=== PATIENT | male | born 1935 | race Caucasian/White ===

== ENCOUNTER 2016-12-23 13:27 | Emergency (ER) | payer OTHER, MEDICARE ==
[~2016-12-23] VITALS: Ht 162.6 cm; Wt 90.7 kg
--- NOTE | 2016-12-23 13:47 | ED MVC/FALL/TRAUMA COMPLAINT ---
History of Present Illness General Chief Complaint: Laceration Procedure Stated Complaint: LAC TO CHIN, S/P FALL Source: patient, old records Exam Limitations: no limitations Vital Signs & Intake/Output Vital Signs & Intake/Output Vital Signs Date Time Temp Pulse Resp B/P B/P Pulse O2 O2 Flow FiO2 Mean Ox Delivery Rate 12/23 1502 75 128/60 12/23 1337 98.4 76 18 129/61 98 Room Air Allergies Coded Allergies: No Known Allergies (12/23/16) Triage Note: 81 YO MALE TO TRIAGE FROM [facility]. PT STATES HE WAS TALKING AND TRIPPED AND FELL. +HEADSTRIKE. PT SENT IN FOR CT SCAN. PT NOTED WITH LAC TO R SIDE OF FACE, STERISTIPS IN PLACE FROM [facility]. Triage Nurses Notes Reviewed? yes Onset: Abrupt Duration: hour(s): (2), better, constant Timing: single episode today Severity: mild Severity Numbers: 1 Injuries/Fall Location: face Method of Injury: fall Loss of Consciousness: no loss of consciousness No Modifying Factors: none Associated Symptoms: denies HPI: 81 year old male with history of gout presents to the ER for evaluation s/p mechanical fall just prior to arrival. He now presents with a laceration to his right jaw. He states he tripped walking on a sidewalk hitting his face on a brick. There is no loss of consciousness the injury occurred approximate 2 hours ago he went to an urgent care and was referred here for further evaluation. He denies any headache there is no loss of consciousness he is not on any blood thinners. No change in his mental status per family. He is declining anything for pain when offered no epistaxis no vision changes no neck back chest or abdominal pain denies any arm or leg injury. The fall was mechanical he tripped over the sidewalk there is no prodromal dizziness lightheadedness prior to his fall. (SHERRI PERSAUD,NIALL) Past History Travel History Traveled to [place] past 21 day No Medical History Any Pertinent Medical History? 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 No (NIALL HERNANDEZ) Review of Systems Review of Systems Constitutional: Reports: see HPI. All Other Systems: Reviewed and Negative Comments Review of systems: See HPI, All other systems negative. Constitutional, no chills no fever, no malaise HEENT: No visual changes no sore throat no congestion Cardiovascular: No chest pain , no palpitation Skin: no rashes, no change in skin Respiratory: No dyspnea no cough no sputum GI: No nausea no vomiting, no diarrhea, Muscle skeletal: No joint pain, no joint swelling, no back pain, no neck pain, Neurologic: No numbness no confusion, no headache Psych: No stress Heme/endocrine: No bruising Immunology: No lymphadenopathy (NIALL HERNANDEZ) Physical Exam Physical Exam General Appearance: well developed/nourished, alert, awake Comments: Well-developed well-nourished person in no acute distress HEENT: There is a 1 cm V-shaped flap laceration noted to the right mandible, no active bleeding no surrounding ecchymosis or swelling nontender no dental trauma no intraoral laceration Normal EENT exam; PERRL, EOMI, no nystagmus. scalp is atraumatic. moist mucous membranes. Neck: Supple, , normal range of motion without pain or tenderness Back: Nontender, Full range of motion Cardiovascular: Regular rate and rhythms no murmurs rubs Respiratory: No respiratory distress. Patient speaking in full complete sentences. Breath sounds clear to auscultation bilaterally: NO W/R/R Extremity: No edema, full range of motion of extremities, normal and equal pulses bilaterally Neuro: Alert oriented x3, motor sensory normal, cranial nerves II through XII grossly intact. There were no obvious focal neurologic abnormalities. Skin: No appreciable rash on exposed skin, skin is warm and dry. Psych: Mood and affect is normal, memory and judgment is normal. Core Measures ACS in differential dx? No Severe Sepsis Present: No Septic Shock Present: No (NIALL HERNANDEZ) Progress Differential Diagnosis: C/T/L spine injury, ext injury, ICH, spinal cord injury Plan of Care: Orders Procedure Date/time Status CT HEAD WO IV CONTRAST 12/23 1338 Active CAT scan was ordered from triage patient is declining anything for pain when offered The wound was thoroughly irrigated with normal saline Betadine peroxide Dermabond was applied. Return precautions were discussed at a long discussion with the patient and his family regarding his CAT scan results need for close follow-up with his primary-care return to ER with any concerns or signs of infection they feel comfortable this plan cleared for discharge (NIALL HERNANDEZ) Diagnostic Imaging: Viewed by Me: CT Scan. Discussed w/RAD: CT Scan. Radiology Impression: PATIENT: COREY PENDLETON PRESENT AGE : 81 PATIENT ACCOUNT NO: [id number] : 34 LOCATION: [facility] ORDERING PHYSICIAN: NIALL PERSAUD SERVICE DATE: 12/23/16 EXAM TYPE: CAT - CT HEAD WO IV CONTRAST EXAMINATION: CT HEAD WITHOUT CONTRAST CLINICAL INFORMATION: 81-year-old man with head injury post fall. COMPARISON: None TECHNIQUE: Contiguous axial imaging was performed from the skull base to vertex without intravenous administration of contrast. DLP: 553 mGy-cm FINDINGS: There is no evidence of acute intracranial hemorrhage or territorial infarction. No abnormal mass effect or midline shift is seen. [place]ult[place] to white matter differentiation is well preserved. No extra-axial fluid collections are identified. The ventricles and sulcal spaces are diffusely prominent due to chronic volume loss. There is no abnormal attenuation within the brain parenchyma. The osseous structures and soft tissues are normal. The mastoid air cells and visualized portions of the paranasal sinuses are well aerated. IMPRESSION: No acute intracranial pathology. DICTATED BY: JACQUELINE MORGAN MD DATE/TIME DICTATED:12/23/161429 RECYCLER: ROSMERY DATE/TIME TRANSCRIBED:12/23/161429 CONFIDENTIAL, DO NOT COPY WITHOUT APPROPRIATE AUTHORIZATION. <Electronically signed in Other Vendor System> SIGNED BY: JACQUELINE MORGAN MD 12/23/16 1436 (NIALL HERNANDEZ) Departure Departure Time of Disposition: 1453 Disposition: HOME OR SELF CARE Condition: Stable Clinical Impression Primary Impression: Minor head injury without loss of consciousness Secondary Impressions: Facial laceration Additional Instructions: Keep wound clean and covered bacitracin daily.the glue will dissolve on its own. Tylenol Motrin as needed for pain follow-up with your primary care physician, return to ER with any concerns or signs of infection. Departure Forms: Customer Survey General Discharge Information (NIALL HERNANDEZ) PA/BUILDING MAINTENANCE REPAIRER Co-Sign Statement Statement: ED Attending supervision documentation- [X] I saw and evaluated the patient. I have also reviewed all the pertinent lab results and diagnostic results. I agree with the findings and the plan of care as documented in the PA's/BUILDING MAINTENANCE REPAIRER's documentation. [X] I have reviewed the ED Record and agree with the PA's/BUILDING MAINTENANCE REPAIRER's documentation. [] Additions or exceptions (if any) to the PAs/BUILDING MAINTENANCE REPAIRER's note and plan are summarized below: [] (DAMASO MENDOZA,MARILIN Parekh) Procedures Laceration/Wound Repair Laceration/Wound Repair: Wound Location: face Wound's Depth, Shape: flap, linear Wound Length (cm): 1 Wound Explored: clean, no foreign body removed, irrigated extensively Irrigated w/ Saline (ccs): 200 Betadine Prep? Yes Wound Repaired With: Dermabond Layer Closure? No Sterile Dressing Applied: Yes (SHERRI PERSAUD,NIALL)
--- NOTE | 2016-12-23 14:36 | CT SCAN REPORT ---
EXAMINATION: CT HEAD WITHOUT CONTRAST CLINICAL INFORMATION: 81-year-old man with head injury post fall. COMPARISON: None TECHNIQUE: Contiguous axial imaging was performed from the skull base to vertex without intravenous administration of contrast. DLP: 553 mGy-cm FINDINGS: There is no evidence of acute intracranial hemorrhage or territorial infarction. No abnormal mass effect or midline shift is seen. [place]ult[place] to white matter differentiation is well preserved. No extra-axial fluid collections are identified. The ventricles and sulcal spaces are diffusely prominent due to chronic volume loss. There is no abnormal attenuation within the brain parenchyma. The osseous structures and soft tissues are normal. The mastoid air cells and visualized portions of the paranasal sinuses are well aerated. IMPRESSION: No acute intracranial pathology.
[2016-12-23 15:02] VITALS: BP 128/60
== END 2016-12-23 15:03 ==
LOC: ERH 13:27
DX: S01.81XA Laceration without foreign body of other part of head, initial encounter (principal); S09.90XA Unspecified injury of head, initial encounter; W18.09XA Striking against other object with subsequent fall, initial encounter; Y92.9 Unspecified place or not applicable; Y93.9 Activity, unspecified